=== PATIENT | female | born 1985 ===

== ENCOUNTER 2018-03-28 09:46 | Emergency (ER) | payer MEDICAID ==
[2018-03-28 09:53] VITALS: O2SAT 100
[2018-03-28 12:17] LABS: BASO % 0.1 % (0.0-2.0); EOS # 0.1 K/uL (0.0-0.7); EOS % 0.8 % (0.0-4.0); HEMOGLOBIN 12.5 g/dL (11.0-16.0); LYMPH # 1.5 K/uL (1.0-4.3); LYMPH % 16.1 % (20.0-40.0); MEAN CELL VOLUME 81.5 fL (81.0-99.0); MEAN CORPUSCULAR HEMOGLOBIN 27.4 pg (27.0-31.0); MEAN CORPUSCULAR HGB CONC 33.7 g/dL (33.0-37.0); MONO # 0.8 K/uL (0.0-0.8); MONO % 8.9 % (0.0-10.0); NEUT % 74.1 % (50.0-75.0); RBC 4.56 Mil/uL (3.80-5.20); RED CELL DISTRIBUTION WIDTH 13.7 % (11.5-14.5); WHITE BLOOD COUNT 9.5 K/uL (4.8-10.8)
[2018-03-28 12:19] LABS: HCG,QUALITATIVE URINE POSITIVE (NEGATIVE)
[2018-03-28 12:27] LABS: SQUAMOUS EPITHIAL 22 /hpf (0-5); URINE BACTERIA RARE (<OCC); URINE BILIRUBIN NEGATIVE (NEGATIVE); URINE BLOOD 1+ (NEGATIVE); URINE CLARITY Hazy (Clear); URINE COLOR Straw (YELLOW); URINE GLUCOSE (UA) NORMAL (Normal); URINE LEUKOCYTE ESTERASE TRACE Leu/uL (Negative); URINE PROTEIN NEGATIVE (NEGATIVE); URINE UROBILINOGEN NORMAL mg/dL (0.2-1.0)
--- NOTE | 2018-03-28 12:36 | US ---
PROCEDURE: HISTORY: vag bleeding. 32-year-old female. LMP unknown. . Urine HCG level ordered -not available at this time. COMPARISON: None TECHNIQUE: Transvaginal and transabdominal FINDINGS: The uterus is anteverted. It measures 8.2 x 4.1 x 5.3 mm. No discrete uterine fibroids noted. The 2 stripe complexes 9.2 mm. A tiny 1.4 mm low uterine segment anechoic trace fluid/ cystic focus nonspecific is noted. Inferior to this at the upper cervical length is a 4 mm similar anechoic/trace fluid/cystic focus also suggested. The cervical level focus has a differential of a potential nabothian cyst or even a early less than 5 week gestation a mole in position. Similarly the tiny here focus in the lower uterine segment 1.4 mm also may represent a tiny low lying early intrauterine gestation less than 5 weeks. Correlation is essential in terms of HCG levels. Clinical and imaging follow-up is advised. Right ovary measures 4.1 x 1.6 x 2.9 cm and is normal in appearance Doppler flow was normal appearing/ unremarkable. The flow in the left ovary is also similarly normal appearing. Left ovary measures 4.2 x 3.0 x 1.2 cm. Left ovary is also normal in appearance Small amount of free fluid in the cul-de-sac is noted. IMPRESSION: Two, very small thick/ fluid/like foci lower uterine segment and upper cervical region -differential considerations are as referenced above. At this time early less than 5 week gestation is not excluded and correlation with HCG levels. Clinical and imaging follow-up is advised.
--- NOTE | 2018-03-28 12:53 | C.PDOC ---
History Of Present Illness 32 y/o female , LNMP 02/07/18 presents to ED for evaluation of suprapubic discomfort associated with dysuria for "few days". Patient admits to being seen yesterday due to same complaints at different ED and diagnosed with early and treated for UTI, received Rx; Keflex, last dose- today AM. Patient reports, noted one episode of bloody urine early today prompting visit to ED. Otherwise, pt denies fever, chills, sore throat, cough, abd. pain, N/V, vaginal irritation or discahrges, denies vaginal bleeding currently, or any other complaints at this time. Ambulate to Ed for evaluation, not in any apparent distress. Time Seen by Provider: 03/28/18 10:28 Chief Complaint (Nursing): Female Genitourinary History Per: Patient History/Exam Limitations: no limitations Onset/Duration Of Symptoms: Days Current Symptoms Are (Timing): Still Present Quality Of Discomfort: "Pain" Associated Symptoms: Urinary Symptoms Past Medical History Reviewed: Historical Data, Nursing Documentation, Vital Signs Vital Signs: Last Vital Signs Temp 98.1 F 03/28/18 13:12 Pulse 80 03/28/18 13:12 Resp 18 03/28/18 13:12 BP 115/80 03/28/18 13:12 Pulse Ox 100 03/28/18 13:18 - Medical History PMH: No Chronic Diseases Surgical History: No Surg Hx - [facility] Procedures ESOPHAGOGASTRODUODENOSCOPY [EGD] W/CLOSED BIOPSY (04/08/14) Family History: States: No Known Family Hx - Social History Hx Alcohol Use: No Hx Substance Use: No Review Of Systems Constitutional: Negative for: Fever, Chills Gastrointestinal: Positive for: Abdominal Pain. Negative for: Nausea, Vomiting Genitourinary: Positive for: Dysuria Musculoskeletal: Negative for: Back Pain Skin: Negative for: Rash Physical Exam - Physical Exam Appears: Well, Non-toxic, No Acute Distress Skin: Normal Color, Warm, Dry, No Rash Head: Normacephalic Eye(s): bilateral: PERRL Nose: No Flaring, No Discharge Oral Mucosa: Moist Throat: No Erythema, No Drooling Neck: Trachea Midline, Supple Cardiovascular: Rhythm Regular, No Murmur Respiratory: No Decreased Breath Sounds, No Accessory Muscle Use, No Stridor, No Wheezing Gastrointestinal/Abdominal: Soft, Tenderness (mild suprapubic), No Distention, No Guarding, No Rebound Back: No CVA Tenderness Extremity: Normal ROM, No Deformity, No Swelling Neurological/Psych: Oriented x3, Normal Speech ED Course And Treatment - Laboratory Results Result Diagrams: 03/28/18 12:07 Urine POC: Positive O2 Sat by Pulse Oximetry: 100 (RA) Pulse Ox Interpretation: Normal - CT Scan/US OB US Other Rad Studies (CT/US): Radiology Report Reviewed CT/US Interpretation: Creator : Nicole Menjivar. Dictator : Nicole Menjivar. Retail Pharmacy Manager : Occupational Health Manager : Nicole Menjivar. Approver2 : Report Date : 03/28/2018 12:35:08. My Comment : . PROCEDURE: HISTORY: vag bleeding. 32-year-old female. LMP unknown. . Urine HCG level ordered -not available at this time. COMPARISON: None. TECHNIQUE: Transvaginal and transabdominal. FINDINGS: The uterus is anteverted. It measures 8.2 x 4.1 x 5.3 mm. No discrete uterine fibroids noted. The 2 stripe complexes 9.2 mm. A tiny 1.4 mm low uterine segment anechoic trace fluid/ cystic focus nonspecific is noted. Inferior to this at the upper cervical length is a 4 mm similar anechoic/trace fluid/cystic focus also suggested. The cervical level focus has a differential of a potential nabothian cyst or even a early less than 5 week gestation a mole in position. Similarly the tiny here focus in the lower uterine segment 1.4 mm also may represent a tiny low lying early intrauterine gestation less than 5 weeks. Correlation is essential in terms of HCG levels. Clinical and imaging follow-up is advised. Right ovary measures 4.1 x 1.6 x 2.9 cm and is normal in appearance Doppler flow was normal appearing/ unremarkable. The flow in the left ovary is also similarly normal appearing. Left ovary measures 4.2 x 3.0 x 1.2 cm. Left ovary is also normal in appearance. Small amount of free fluid in the cul-de-sac is noted. IMPRESSION: Two, very small thick/ fluid/like foci lower uterine segment and upper cervical region -differential considerations are as referenced above. At this time early less than 5 week gestation is not excluded and correlation with HCG levels. Clinical and imaging follow-up is advised. Progress Note: Beta quant 561. On re-eval, pt is afebrile, hemodynamicaly stable. NOn-toxic. Pt reports, moderate improvement in pain. Tolerate po well in ED. PulsEOx 99% RA. ENT: no acute findings. neck: SUpple, (-) meningeal sign. Lungs: CTA B/L, BS equal B/L. ABd: benign, (-) guarding, (-) rebound, (- ) localized tenderness. Neurologicaly intact. Bood work review, no acute finidngs. UA appears normal. OB US review (+) ? early vs threatened /ectopic. Pt advised to F/U with OB in 2 days for repeat beta and US. If unable to see OB-return to ED for further eval. return bian[facility] ED at any time if any worsening or new changes. Disposition Counseled Patient/Family Regarding: Studies Performed, Diagnosis, Need For Followup, Rx Given - Disposition [facility] Disposition: HOME/ ROUTINE Disposition Time: 12:20 Condition: STABLE Additional Instructions: Continue antibiotic as initiated "Pelvic rest" for 1 week including avoid heavy lifting, sexual activity, etc. Follow up with OB in 2-3 days for re-evaluation. or return to ED in 1 week for repeat blood work and US. return to ED at any time if vaginal bleeding reoccur and any other new changes. Prescriptions: Multivit/Folic Acid/I [ Plus] 1 tab PO DAILY #30 tab Instructions: Threatened Miscarriage, - The First Month Forms: [email or web address] ([place]ien) - Clinical Impression Clinical Impression: Threatened miscarriage, Early stage of , UTI (urinary tract infection) - PA / LOKIE ENGINEER / Resident Statement MD/DO has reviewed & agrees with the documentation as recorded. - Scribe Statement The provider has reviewed the documentation as recorded by the Pamela Jimenez All medical record entries made by the Pamela were at my direction and personally dictated by me. I have reviewed the chart and agree that the record accurately reflects my personal performance of the history, physical exam, medical decision making, and the department course for this patient. I have also personally directed, reviewed, and agree with the discharge instructions and disposition.
[2018-03-28 13:19] VITALS: BP 115/80; PULSE 80; RESP 18; TEMP 98.1
== END 2018-03-28 13:18 | disposition home or self-care (01) ==
LOC: C.ER 09:46
DX: O20.0 Threatened abortion (principal); O23.41 Unspecified infection of urinary tract in pregnancy, first trimester; Z3A.01 Less than 8 weeks gestation of pregnancy